=== PATIENT | female | born 1975 | race Caucasian/White ===

== ENCOUNTER 2017-06-12 23:03 | Emergency (ER) | payer SELFPAY ==
[2017-06-12 23:19] VITALS: BP 105/71; PULSE 74; TEMP 97.9; BMI 30.7
[2017-06-12] MEDS ORDERED: AZITHROMYCIN 250 MG TABLET PO STA (23:27)
--- NOTE | 2017-06-12 23:27 | PDOC ---
History of Present Illness - General History Source: Patient <Toney Guajardo - Last Filed: 06/12/17 23:31> - General History Source: Patient Exam Limitations: No Limitations - History of Present Illness Initial Comments: 06/12/17 23:38 The patient is a 41 year old female, with significant past medical history of asthma, GERD, and anemia, who presents to the emergency room complaining of a cough and cold since labor day, approximately 1 week and a half ago. She states that the cough is persistent and is triggering her asthma. She has used her albuterol pump multiple times per day. She reports posttussive vomiting and notes that she is developing a headache because of the constant cough. Denies fever, chills. Denies sick contacts or recent travel. Allergies:Penicillin <Veronica Corrigan - Last Filed: 06/12/17 23:40> - General Chief Complaint: Cold Symptoms Stated Complaint: CONGESTION Time Seen by Provider: 06/12/17 23:20 Past History - Past Medical History Anemia: Yes Asthma: Yes Cancer: No Cardiac Disorders: No Diabetes: No GI Disorders: Yes (gerd) HTN: No Hypercholesterolemia: No Suicide Attempt (Hx): No Seizures: No Thyroid Disease: No - Surgical History Cholecystectomy: Yes - Reproductive History (#): 6 Para: 4 Spontaneous : 1 - Psycho/Social/Smoking Cessation Hx Anxiety: No Suicidal Ideation: No Smoking Status: No Smoking History: Never smoked Have you smoked in the past 12 months: No Number of Cigarettes Smoked Daily: 0 Information on smoking cessation initiated: No Hx Alcohol Use: No Drug/Substance Use Hx: No Substance Use Type: None Hx Substance Use Treatment: No <Toney Guajardo - Last Filed: 06/12/17 23:31> <Veronica Corrigan - Last Filed: 06/12/17 23:40> - Past Medical History Allergies/Adverse Reactions: Allergies Allergy/AdvReac Type Severity Reaction Status Date / Time Penicillins Allergy Verified 06/12/17 23:16 Home Medications: Ambulatory Orders Albuterol 0.083% Nebulizer Gretchen [Ventolin 0.083% Nebulizer Soln -] 1 neb NEB Q6H PRN #20 vial 08/10/15 Methylprednisolone [Medrol Dose Dominik] 4 mg PO ASDIR #21 tablet 08/10/15 Azithromycin [Zithromax -] 250 mg PO UTDICT #6 tab 06/12/17 Guaifenesin AC [Robitussin AC] 10 ml PO Q6H #20 ud MDD 4 06/12/17 Methylprednisolone [Medrol Dose Dominik] 4 mg PO ASDIR #21 tablet 06/12/17 Review of Systems - Review of Systems Able to Perform ROS?: Yes Comments:: 06/12/17 23:39 CONSTITUTIONAL: Present: headache Absent: fever, no chills, no fatigue EYES: Absent: visual changes ENT: Absent: ear pain, no sore throat CARDIOVASCULAR: Absent: chest pain, no palpitations RESPIRATORY: Present: cough, posttussive vomiting Absent: no SOB GI: Absent: abdominal pain, no nausea, no constipation, no diarrhea GENITOURINARY: Absent: dysuria, no frequency, no hematuria MUSCULOSKELETAL: Absent: back pain, no arthralgia, no myalgia SKIN: Absent: rash <Veronica Corrigan - Last Filed: 06/12/17 23:40> *Physical Exam - Vital Signs Last Vital Signs Temp Pulse Resp BP Pulse Ox 97.9 F 74 14 105/71 99 06/12/17 23:17 06/12/17 23:17 06/12/17 23:17 06/12/17 23:17 06/12/17 23:17 <Toney Guajardo - Last Filed: 06/12/17 23:31> - Vital Signs Last Vital Signs Temp Pulse Resp BP Pulse Ox 97.9 F 74 14 105/71 99 06/12/17 23:17 06/12/17 23:17 06/12/17 23:17 06/12/17 23:17 06/12/17 23:17 - Physical Exam Comments: 06/12/17 23:40 GENERAL: Well-appearing, well-nourished. No apparent distress. HEENT: Normocephalic, atraumatic. PERRL, EOM intact. CARDIOVASCULAR: Normal S1, S2. Regular rate and rhythm. PULMONARY: Clear to auscultation bilaterally. No wheezing. ABDOMEN: Soft, non-distended, non-tender. EXTREMITIES: Normal ROM in all four extremities. No gross deformities. SKIN: Warm, dry. No rash NEUROLOGICAL: No focal neurological deficits. <Veronica Corrigan - Last Filed: 06/12/17 23:40> Medical Decision Making - Medical Decision Making 06/12/17 23:32 <Toney Guajardo - Last Filed: 06/12/17 23:31> *DC/Admit/Observation/Transfer - Discharge Dispostion Admit: No <Toney Guajardo - Last Filed: 06/12/17 23:31> - Attestations Scribe Attestion: 06/12/17 23:40 Documentation prepared by MATT Murguia, acting as medical videographer for Toney Guajardo MD. <Veronica Corrigan - Last Filed: 06/12/17 23:40> Diagnosis at time of Disposition: Cough - Discharge Dispostion Disposition: HOME Condition at time of disposition: Stable - Prescriptions Prescriptions: Methylprednisolone [Medrol Dose Dominik] 4 mg PO ASDIR #21 tablet Guaifenesin AC [Robitussin AC] 10 ml PO Q6H #20 ud MDD 4 Azithromycin [Zithromax -] 250 mg PO UTDICT #6 tab - Patient Instructions Printed Discharge Instructions: DI for Cough -- Adult
[2017-06-12] MEDS ORDERED: predniSONE 20 MG TABLET (UD) PO ONE (23:28)
[2017-06-12] MEDS ORDERED: guaiFENesin/CODEINE 10 ML UNIT-DOSE CUPS PO ONE (23:29)
[2017-06-12] MEDS ORDERED: AZITHROMYCIN 250 MG TABLET ONE (23:42)
[2017-06-12] MEDS ORDERED: guaiFENesin/D-METHORPHAN HB 10 ML UNIT-DOSE CUPS ONE (23:42)
[2017-06-12] MEDS ORDERED: predniSONE 10 MG TABLET (UD) ONE (23:43)
== END 2017-06-12 23:46 | disposition home or self-care (01) ==
LOC: JER 23:03
DX: R05 Cough (principal); J45.909 Unspecified asthma, uncomplicated; K21.9 Gastro-esophageal reflux disease without esophagitis
CPT/HCPCS: 99281-25

== ENCOUNTER 2017-10-31 07:13 | Emergency (ER) | payer BC ==
[2017-10-31 07:48] VITALS: BMI 31.1
--- NOTE | 2017-10-31 08:00 | PDOC ---
History of Present Illness - General History Source: Patient Exam Limitations: No Limitations - History of Present Illness Initial Comments: 10/31/17 08:55 41 y.o female with significant past medical history of IBS, GERD, and asthma, who presents today complaining of 2 days of suprapubic pain, dysuria, urinary frequency, and lower back pain. The patient describes the suprapubic pain as pressure and notes burning on urination. Denies hematuria. The patient reports achy and uncomfortable lower back pain. She states that the pain feels similar to pain she has experienced in the past with UTIs. The patient has been taking Aleve without any relief of pain. Denies fever, but reports chills. Denies nausea, vomiting, diarrhea, constipation. Denies chest pain, SOB. Denies headache. Denies recent travel. Allergies: Penicillin Surgical hx: cholecystectomy Social hx: No tobacco use, occasional alcohol use. PCP: Dr. Nicole Billy <Veronica Corrigan - Last Filed: 10/31/17 08:57> <Thompson Cotton - Last Filed: 10/31/17 15:53> - General Chief Complaint: Pain Stated Complaint: ABD PAIN Time Seen by Provider: 10/31/17 07:57 Past History <Veronica Corrigan - Last Filed: 10/31/17 08:57> - Past Medical History Anemia: Yes Asthma: Yes Cancer: No Cardiac Disorders: No COPD: No Diabetes: No GI Disorders: Yes (gerd) HTN: No Hypercholesterolemia: No Seizures: No Thyroid Disease: No - Surgical History Cholecystectomy: Yes - Reproductive History (#): 6 Para: 4 Spontaneous : 1 - Suicide/Smoking/Psychosocial Hx Smoking Status: No Smoking History: Never smoked Have you smoked in the past 12 months: No Number of Cigarettes Smoked Daily: 0 Information on smoking cessation initiated: No Hx Alcohol Use: No Drug/Substance Use Hx: No Substance Use Type: None Hx Substance Use Treatment: No <Thompson Cotton - Last Filed: 10/31/17 15:53> - Past Medical History Allergies/Adverse Reactions: Allergies Allergy/AdvReac Type Severity Reaction Status Date / Time Penicillins Allergy Verified 10/31/17 07:44 Home Medications: Ambulatory Orders Azithromycin [Zithromax -] 250 mg PO UTDICT #6 tab 06/12/17 Guaifenesin AC [Robitussin AC] 10 ml PO Q6H #20 ud MDD 4 06/12/17 Methylprednisolone [Medrol Dose Dominik] 4 mg PO ASDIR #21 tablet 06/12/17 Sulfamethoxazole/Trimethoprim [Bactrim Ds -] 1 tab PO BID #20 tablet 10/31/17 Tramadol HCl 50 mg PO TID #14 tablet MDD 3 10/31/17 Abd/GI Specific PMHX - Complaint Specific PMHX Colitis: No Diverticulitis: No Irritable Bowel Synd (IBS): No Pancreatitis: No <Uriah Cottonis - Last Filed: 10/31/17 15:53> Review of Systems - Review of Systems Able to Perform ROS?: Yes Comments:: 10/31/17 08:55 CONSTITUTIONAL: +chills. No fever, no fatigue EYES: No visual changes ENT: No ear pain, no sore throat CARDIOVASCULAR: No chest pain, no palpitations RESPIRATORY: No cough, no SOB GI: No abdominal pain, no nausea, no vomiting, no constipation, no diarrhea GENITOURINARY: +dysuria, + frequency, no hematuria MUSKULOSKELETAL: +lower back pain. SKIN: No rash NEURO: No headache <Veronica Corrigan - Last Filed: 10/31/17 08:57> *Physical Exam - Vital Signs Last Vital Signs Temp Pulse Resp BP Pulse Ox 98.1 F 62 18 102/51 97 10/31/17 07:45 10/31/17 07:45 10/31/17 07:45 10/31/17 07:45 10/31/17 07:45 - Physical Exam Comments: 10/31/17 08:56 CONSTITUTIONAL: Well-appearing; well-nourished; in no apparent distress HEAD: Normocephalic; atraumatic EYES: PERRL; EOM intact ENMT: External appears normal; normal oropharynx NECK: Supple; nontender; no cervical lymphadenopathy CARD: Normal S1, S2; no murmurs, rubs, or gallops RESP: Normal chest excursion with respiration; breath sounds clear and equal bilaterally; no wheezes, rhonchi, or rales ABD: +Suprapubic and RLQ tenderness to palpation. Soft, non-distended; no palpable organomegaly, no palpable hernias BACK: +right CVA tenderness EXT: Normal ROM in all four extremities; non-tender to palpation; distal pulses intact SKIN: Warm, dry, no rash NEURO: No focal neurological deficiencies. <Deangelo Corriganssica - Last Filed: 10/31/17 08:57> - Vital Signs Last Vital Signs Temp Pulse Resp BP Pulse Ox 98.1 F 62 18 102/51 97 10/31/17 07:45 10/31/17 07:45 10/31/17 07:45 10/31/17 07:45 10/31/17 07:45 <Thompson Cotton - Last Filed: 10/31/17 15:53> ED Treatment Course - LABORATORY CBC & Chemistry Diagram: 10/31/17 08:40 10/31/17 08:40 - ADDITIONAL ORDERS Additional order review: Laboratory Results 10/31/17 08:10 Urine HCG, Qual Negative <Veronica Corrigan - Last Filed: 10/31/17 08:57> - LABORATORY CBC & Chemistry Diagram: 10/31/17 08:40 10/31/17 08:40 <Thompson Cotton - Last Filed: 10/31/17 15:53> Medical Decision Making - Medical Decision Making 10/31/17 09:58 Patient is a well-appearing 41-year-old female who presents to the ER with atraumatic suprapubic and right lower quadrant pain, urinary frequency, urgency and dysuria. In the ER, patient is awake and alert, afebrile, hemodynamically stable. Physical exam reveals right lower quadrant and suprapubic tenderness to palpation as well as left CVA tenderness to palpation. Differential diagnoses includes UTI versus pyelonephritis versus acute appendicitis. Will obtain CBC/ CMP/UA/urine culture. Will hydrate, we'll administer pain meds. We'll administer IV antibiotics; ua consistent with pyuria. Will reassess. We'll perform serial abdominal exams to determine need for further investigation. 10/31/17 15:49 Patient reassessed. Patient is resting comfortably, tolerates by mouth. Abdominal evaluation reveals suprapubic tenderness only. CT of abdomen and pelvis reveals no evidence of acute appendicitis or other intra-abdominal pathology. Retroverted fibroid uterus is noted. Will discharge with pain meds and antibiotics for UTI. <Thompson Cotton - Last Filed: 10/31/17 15:53> *DC/Admit/Observation/Transfer - Attestations Scribe Attestion: 10/31/17 08:56 Documentation prepared by MATT Murguia, acting as medical billing specialist for Thompson Cotton MD. <Veronica Corrigan - Last Filed: 10/31/17 08:57> - Attestations Physician Attestion: 10/31/17 09:58 The documentation was prepared by the scribe under my direct supervision. I have reviewed the documentation which correctly represents the findings, medical decision-making and critical action taken by me. <Thompson Cotton - Last Filed: 10/31/17 15:53> Diagnosis at time of Disposition: Urinary tract infection Qualifiers: Urinary tract infection type: acute cystitis Hematuria presence: with hematuria Qualified Code(s): N30.01 - Acute cystitis with hematuria Abdominal pain Qualifiers: Abdominal location: lower abdomen, unspecified Qualified Code(s): R10.30 - Lower abdominal pain, unspecified Fibroid uterus Qualifiers: Uterine leiomyoma location: unspecified location Qualified Code(s): D25.9 - Leiomyoma of uterus, unspecified - Discharge Dispostion Disposition: HOME Condition at time of disposition: Stable - Referrals Referrals: Nicole Billy MD [Primary Care Provider] - - Patient Instructions Printed Discharge Instructions: DI for Abdominal Pain-Adult, DI for Urinary Tract Infection (UTI), DI for Uterine Fibroids - Post Discharge Activity
[2017-10-31] MEDS ORDERED: SODIUM CHLORIDE 1,000 ML IV STA (08:09)
[2017-10-31] MEDS ORDERED: ACETAMINOPHEN 1000 MG/100 ML VIAL (NON FORMULARY) IVPB ONE (08:10)
[2017-10-31 08:43] LABS: URINE APPEARANCE SLCLOUDY; URINE BILIRUBIN NEGATIVE (NEGATIVE); URINE BLOOD 3+ (NEGATIVE); URINE COLOR RED; URINE GLUCOSE (UA) NEGATIVE (NEGATIVE); URINE KETONE NEGATIVE (NEGATIVE); URINE LEUK ESTERASE NEGATIVE (NEGATIVE); URINE NITRITE POSITIVE (NEGATIVE); URINE UROBILINOGEN 4.0 E.U/dl mg/dL (0.2-1.0)
[2017-10-31 08:44] LABS: HCG,QUALITATIVE URINE NEGATIVE
[2017-10-31] MEDS ORDERED: ACETAMINOPHEN INJECTION 100 ML IVPB ONE (08:49)
[2017-10-31 09:01] LABS: BASO % 0.9 % (0-2.0); EOS % 1.8 % (0-4.5); HEMOGLOBIN 11.3 GM/dL (10.7-15.3); LYMPH % 23.8 % (8-40); MCH 23.3 pg (25.7-33.7); MCHC 31.3 g/dl (32.0-36.0); MEAN CELL VOLUME 74.3 fl (80-96); MEAN PLT VOLUME 6.8 fl (7.5-11.1); MONO % 5.8 % (3.8-10.2); NEUT % 67.7 % (42.8-82.8); PLATELET COUNT 321 K/MM3 (134-434); RBC 4.84 M/mm3 (3.60-5.2); RDW 14.7 % (11.6-15.6); WHITE BLOOD COUNT 9.1 K/mm3 (4.0-10.0)
[2017-10-31 09:05] LABS: URINE PROTEIN 2+ (NEGATIVE)
[2017-10-31 09:12] LABS: EPI CELLS RARE /HPF (FEW)
[2017-10-31] MEDS ORDERED: CEFTRIAXONE 1 GM in DEXTROSE 5%-WATER - 50 ML IVPB ONE (09:20)
[2017-10-31] MEDS ORDERED: CEFTRIAXONE 1 GM/50 ML BAG ONE (10:00)
[2017-10-31 10:08] LABS: ANION GAP 9 (8-16); BLOOD UREA NITROGEN 15 mg/dL (7-18); CALCIUM 8.7 mg/dL (8.5-10.1); CHLORIDE 107 mmol/L (98-107); CO2 24 mmol/L (21-32); GLUCOSE,RANDOM 85 mg/dL (74-106); SODIUM 140 mmol/L (136-145)
[2017-10-31 10:10] LABS: ALK PHOS 65 U/L (45-117); BILIRUBIN,TOTAL 0.5 mg/dL (0.2-1.0); CREATININE 0.8 mg/dL (0.55-1.02); SGPT/ALT 28 U/L (12-78); TOT PROT 7.4 g/dl (6.4-8.2)
[2017-10-31] MEDS ORDERED: KETOROLAC TROMETHAMINE 15 MG/ML VIAL IVPUSH ONE (10:33)
[2017-10-31 10:37] LABS: POTASSIUM 4.9 mmol/L (3.5-5.1)
[2017-10-31 10:38] LABS: SGOT/AST 23 U/L (15-37)
[2017-10-31] MEDS ORDERED: KETOROLAC TROMETHAMINE 15 MG/ML VIAL ONE (10:48)
[2017-10-31 15:46] VITALS: BP 107/74; PULSE 70; TEMP 98.2
== END 2017-10-31 16:04 | disposition home or self-care (01) ==
LOC: JER 07:13
PROC: 3E03329 Introduction of Other Anti-infective into Peripheral Vein, Percutaneous Approach (ICD-10-PCS; principal; 2017-10-31)
PROC: 3E033NZ Introduction of Analgesics, Hypnotics, Sedatives into Peripheral Vein, Percutaneous Approach (ICD-10-PCS; 2017-10-31)
PROC: 3E0333Z Introduction of Anti-inflammatory into Peripheral Vein, Percutaneous Approach (ICD-10-PCS; 2017-10-31)
PROC: 3E0337Z Introduction of Electrolytic and Water Balance Substance into Peripheral Vein, Percutaneous Approach (ICD-10-PCS; 2017-10-31)
DX: N30.01 Acute cystitis with hematuria (principal); R10.30 Lower abdominal pain, unspecified; D25.9 Leiomyoma of uterus, unspecified; K21.9 Gastro-esophageal reflux disease without esophagitis; J45.909 Unspecified asthma, uncomplicated
CPT/HCPCS: 36415; 74177-TC; 80053; 81003; 81015; 84703; 85025; 87086; 87186; 99283-25

== ENCOUNTER 2022-08-22 16:08 | Emergency (ER) | payer BC, OTHER ==
[2022-08-22 16:30] VITALS: BP 128/83; PULSE 88; RESP 18; TEMP 98.3; BMI 32.8
== END 2022-08-22 17:29 | disposition home or self-care (01) ==
LOC: FER 16:08
DX: J09.X2 Influenza due to identified novel influenza A virus with other respiratory manifestations (principal); R05.1 Acute cough; R09.81 Nasal congestion; R51.9 Headache, unspecified
CPT/HCPCS: 0241U-QW; 99283-25

== ENCOUNTER 2023-09-07 14:45 | Emergency (ER) | payer BC, OTHER ==
[2023-09-07] MEDS ORDERED: FAMOTIDINE 20 MG/50 ML IVPB 20 MG/50 ML MG IVPB ONE ×2 (15:03→15:48)
[2023-09-07] MEDS ORDERED: ACETAMINOPHEN 1000 MG/100 ML BAG IVPB ONE (15:03)
[2023-09-07] MEDS ORDERED: MAG HYDROX/AL HYDROX/SIMETH 30 ML UNIT-DOSE CUP PO ONE (15:03)
[2023-09-07 15:09] VITALS: BP 137/82; PULSE 81; RESP 18; TEMP 98.7; BMI 35.5
[2023-09-07 15:44] LABS: ALBUMIN 4.3 g/dl (3.4-5.0); BILIRUBIN,TOTAL 0.4 mg/dl (0.2-1); CALCIUM 8.9 mg/dl (8.5-10.1); CREATININE 0.7 mg/dl (0.6-1.3); MAGNESIUM 2.1 mg/dL (1.8-2.4)
[2023-09-07 15:45] LABS: HEMATOCRIT 38.4 % (32.4-45.2); HEMOGLOBIN 12.2 G/dL (10.7-15.3); MCH 24.8 pg (25.7-33.7); MCHC 31.8 g/dl (32.0-36.0); MEAN PLT VOLUME 7.5 fl (7.5-11.1); PLATELET COUNT 299.1 10^3/uL (134-434); RBC 4.92 10^6/uL (3.60-5.2); RDW 15.2 % (11.6-15.6); WHITE BLOOD COUNT 10.7 10^3/uL (4.0-10.8)
[2023-09-07 15:46] LABS: POTASSIUM 4.6 mmol/L (3.5-5.1)
[2023-09-07] MEDS ORDERED: ACETAMINOPHEN INJECTION 100 ML IVPB ONE (15:48)
[2023-09-07] MEDS ORDERED: MAG HYDROX/AL HYDROX/SIMETH 30 ML UNIT-DOSE CUP ONE (15:48)
[2023-09-07 15:50] LABS: PLATELET ESTIMATE ADEQUATE
== END 2023-09-07 17:54 | disposition home or self-care (01) ==
LOC: FER 14:45
PROC: 3E033GC Introduction of Other Therapeutic Substance into Peripheral Vein, Percutaneous Approach (ICD-10-PCS; principal; 2023-09-07)
PROC: 3E033NZ Introduction of Analgesics, Hypnotics, Sedatives into Peripheral Vein, Percutaneous Approach (ICD-10-PCS; 2023-09-07)
DX: R07.2 Precordial pain (principal); K21.9 Gastro-esophageal reflux disease without esophagitis; Z20.822 Contact with and (suspected) exposure to COVID-19
CPT/HCPCS: 0241U-QW; 36415; 71045-TC-FY; 80053; 81003; 81015; 83735; 83880; 84484; 85027; 87086; 93005; 99285-25

== ENCOUNTER 2024-02-16 05:43 | Emergency (ER) | payer BC ==
[2024-02-16 05:55] VITALS: BP 130/96; PULSE 76; RESP 18; TEMP 97.8; BMI 35.6
[2024-02-16] MEDS ORDERED: KETOROLAC TROMETHAMINE 30 MG/1 ML VIAL ONE (06:13)
[2024-02-16] MEDS: SODIUM CHLORIDE 0.9% 500 ML INFUS.BAG IV ONE (06:14)
[2024-02-16] MEDS: KETOROLAC TROMETHAMINE 30 MG/1 ML VIAL IVPUSH ONE (06:15)
[2024-02-16 08:29] LABS: HCG,QUALITATIVE URINE Negative; HEMATOCRIT 40.3 % (32.4-45.2); HEMOGLOBIN 12.7 G/dL (10.7-15.3); MCH 25.2 pg (25.7-33.7); MCHC 31.5 g/dl (32.0-36.0); MEAN CELL VOLUME 79.9 fl (80-96); MEAN PLT VOLUME 7.4 fl (7.5-11.1); PLATELET COUNT 326.3 10^3/uL (134-434); RBC 5.04 10^6/uL (3.60-5.2); RDW 16.3 % (11.6-15.6); WHITE BLOOD COUNT 8.4 10^3/uL (4.0-10.8)
[2024-02-16 08:34] LABS: PLATELET ESTIMATE ADEQUATE
[2024-02-16 08:41] LABS: BILIRUBIN,TOTAL 0.4 mg/dl (0.2-1); CALCIUM 9.2 mg/dl (8.5-10.1); POTASSIUM 4.7 mmol/L (3.5-5.1); TOT PROT 6.4 g/dl (6.4-8.2)
[2024-02-16] MEDS ORDERED: HYDROmorphone HCL/PF 1 MG/ML VIAL ONE (09:23)
[2024-02-16] MEDS: HYDROmorphone HCl 2 MG/ML VIAL IVPUSH STA (09:27)
[2024-02-16] MEDS: SODIUM CHLORIDE 0.9% 1000 ML INFUS.BAG IV ONE (09:32)
== END 2024-02-16 10:00 | disposition home or self-care (01) ==
LOC: FER 05:43
PROC: 3E033NZ Introduction of Analgesics, Hypnotics, Sedatives into Peripheral Vein, Percutaneous Approach (ICD-10-PCS; principal; 2024-02-16)
PROC: 3E0333Z Introduction of Anti-inflammatory into Peripheral Vein, Percutaneous Approach (ICD-10-PCS; 2024-02-16)
DX: R10.9 Unspecified abdominal pain (principal)
CPT/HCPCS: 36415; 74176-TC; 80053; 81003; 81015; 81025; 84703; 85027; 99284-25

== ENCOUNTER 2025-05-21 09:59 | Emergency (ER) | payer BC, OTHER ==
[2025-05-21 10:12] VITALS: BP 154/94; PULSE 55; RESP 18; TEMP 97.9; BMI 30.7
[2025-05-21] MEDS: LIDOCAINE 5% TOPICAL PATCH TP ONE (10:12)
[2025-05-21] MEDS ORDERED: ACETAMINOPHEN 325 MG TABLET (FP) ONE (10:12)
[2025-05-21] MEDS ORDERED: LIDOCAINE 5% TOPICAL PATCH ONE (10:12)
[2025-05-21] MEDS: ACETAMINOPHEN 325 MG TABLET (FP) PO ONE (10:13)
[2025-05-21 10:56] LABS: EPITHELIAL CELLS 0-5 /hpf
[2025-05-21] MEDS ORDERED: LIDOCAINE PATCH REMOVAL MC SCH (22:00)
== END 2025-05-21 11:36 | disposition home or self-care (01) ==
LOC: FER 09:59
DX: M54.50 Low back pain, unspecified (principal); G89.29 Other chronic pain
CPT/HCPCS: 81003; 81015; 87086; 99283-25